=== PATIENT | female | born 1980 | race American Indian/Alaskan Native ===

== ENCOUNTER 2017-03-05 11:23 | Emergency (ER) | payer OTHER, BC ==
[2017-03-05 11:41] VITALS: BP 116/72
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
[2017-03-05] MEDS ORDERED: ROBAXIN PO ONE (13:00)
[2017-03-05] MEDS ORDERED: PERCOCET 5/325 PO ONE (13:10)
== END 2017-03-05 14:13 | disposition home or self-care (01) ==
LOC: ED 11:23
DX: M54.2 Cervicalgia (principal); M25.512 Pain in left shoulder; M62.838 Other muscle spasm; R20.2 Paresthesia of skin; V89.2XXA Person injured in unspecified motor-vehicle accident, traffic, initial encounter; Y93.89 Activity, other specified; Y92.89 Other specified places as the place of occurrence of the external cause; Y99.8 Other external cause status
CPT/HCPCS: 99282

== ENCOUNTER 2017-03-25 10:10 | Outpatient (CLI) | payer BC, OTHER ==
--- NOTE | 2017-03-25 11:23 | Magnetic Resonance Report ---
MR CERVICAL SPINE WITHOUT CONTRAST HISTORY: Cervicalgia, neck pain, left shoulder strain. TECHNIQUE: Axial T2. Sagittal T1, T2 and STIR. COMPARISON: None at this facility. FINDINGS: There is mild straightening of the normal lordosis. There is normal bone marrow signal throughout the cervical region. No evidence for fracture or bone lesion. The cervical spinal cord is normal size and signal intensity throughout. There is mild disc narrowing at C4-5 and C5-6. Posterior elements are within normal limits. C2-3: No abnormality. C3-4: No abnormality. C4-5: There is a moderate to large diffuse posterior bulging disc which abuts the anterior surface of the spinal cord and mildly displaces it. There is mild to moderate central canal narrowing at this level measuring 7.8 mm in AP dimension. Less than 25% bilateral neural foraminal narrowing. C5-6: There is a large left paracentral disc protrusion which appears to project into the left neural foramen resulting in high-grade left neural foraminal stenosis estimated at 75% or greater. Correlate for radiculopathy. No central canal stenosis. The right neural foramen is within normal limits. C6-7: A small to medium left paracentral disc protrusion is identified without mass effect. C7-T1: No abnormality. IMPRESSION: Multilevel bulging disc/disc protrusions are identified. C4-5 and C5-6 are the most affected levels as outlined above.
== END 2017-03-25 10:11 | disposition home or self-care (01) ==
LOC: MRI 10:10
DX: M50.221 Other cervical disc displacement at C4-C5 level (principal); M50.222 Other cervical disc displacement at C5-C6 level; M50.223 Other cervical disc displacement at C6-C7 level
CPT/HCPCS: 72141